=== PATIENT | female | born 1945 | race Caucasian/White ===

== ENCOUNTER 2025-01-30 10:07 | Emergency (ER) | payer MEDICARE, OTHER, SELFPAY ==
[2025-01-30] VITALS (7 sets, daily range): BP systolic 151–189; BP diastolic 77–93; PULSE 77–85; RESP 18–24; TEMP 36.4; O2SAT 95–100
--- NOTE | 2025-01-30 10:08 | DI.CT.S_ITS ---
PROCEDURE: CT STROKE INDICATIONS: Altered mental status TECHNIQUE: Noncontrast 4.5 mm thick angled axial sections acquired from the foramen magnum to the vertex, with coronal reformats. For radiation dose reduction, the following was used: automated exposure control, adjustment of mA and/or kV according to patient size. COMPARISON: None. FINDINGS: Image quality: Diagnostic. CSF spaces: Basal cisterns are patent. Large extra-axial hematoma along left frontal parietal convexity measures up to 1.8 cm in thickness. There is also suggestion of a small extra-axial bleed along right frontal convexity. Brain: Large hematoma within left posterior parietal occipital lobe with extensive surrounding vasogenic edema and significant mass effect on the adjacent left lateral ventricle and left cerebral hemisphere. There is up to 2.2 cm midline shift to the right. There is cerebral volume loss, with resultant ventricular and sulcal prominence. There are periventricular and deep white matter chronic small vessel ischemic changes. There is intracranial internal carotid artery atherosclerosis. Skull and face: Calvarium and visualized facial bones appear intact, without suspicious lesions. Sinuses: Visualized sinuses and mastoids are clear. IMPRESSION: 1. Acute intraparenchymal hemorrhage involving left posterior parietal septal lobe with extensive surrounding vasogenic edema, mass effect on left cerebral hemisphere and left lateral ventricle with up to 2.2 cm midline shift to the right. 2. Large left extra-axial hematoma likely subarachnoid measures up to 1.8 cm in thickness. Small right frontal subarachnoid hemorrhage. Findings were reported to ordering physician in the ER at the time of dictation. This study fulfills neurological imaging criteria for inclusion or exclusion of acute stroke therapies based on available published neurological guidelines. Dictated by: Mata Sanders M.D. on 01/30/2025 at 10:28 Approved by: Mata Sanders M.D. on 01/30/2025 at 10:35
--- NOTE | 2025-01-30 10:18 | ED.AMS ---
HPI - Altered Mental Status General Chief Complaint: Neuro Symptoms/Deficit Stated Complaint: Code stroke,intubated,blown pupil,LKW 0900 Time Seen by Provider: 01/30/25 10:07 History of Present Illness HPI narrative: Patient brought in by ambulance from local [place]. Patient became unresponsive on the [place]. Blood sugar 137. Medical provider at scene saw that patient was unresponsive. No CPR was done. Sudden note is with patient. He was bringing her back to [place], her home. They were in [place] yesterday for Nephrology visits. She does have history of aortic aneurysm and kidney disease. He is uncertain why she has kidney failure. Is not on dialysis. Uncertain if she is on blood thinners. He states it she is on experimental program for her aortic aneurysm. She was doing well yesterday. Went to bed with no complaints however the awoke this morning with a headache. She was confused on their way to the [place]. Patient intubated with 7.0 ET tube. Done by EMS. 24 cm at the gums. Patient has fixed dilated left pupil. No response to pain stimuli to the fingers bilaterally or feet bilaterally. No response to sternal rub. Code stroke was activated Related Data Allergies Allergy/AdvReac Type Severity Reaction Status Date / Time No Known Drug Allergies Allergy Verified 01/30/25 10:16 Review of Systems Review of Systems Narrative: GENERAL: Negative chills, fatigue, malaise, fever, sweats. HEENT: Negative sinus pain, ear pain, sore throat RESPIRATORY: Negative dyspnea, cough CARDIOVASCULAR: Negative chest pain, palpitations GASTROINTESTINAL: Negative vomiting, nausea, abdominal pain : Negative dysuria, frequency, hematuria MUSCULOSKELETAL: Negative muscle or bony pain SKIN: Negative rash, skin lesions NEUROLOGIC: Negative weakness, numbness, positive headache, positive confusion History from son ROS Unobtainable: All systems reviewed & are unremarkable except as noted in HPI and below Exam Narrative Exam Narrative: GENERAL: Patient intubated before the hospital arrival HEAD: Normocephalic. EYES: Left pupil dilated compared to the right ENT: Mucous membranes moist. NECK: Trachea midline. CARDIOVASCULAR: Regular rate and rhythm RESPIRATORY: Clear to auscultation. Breath sounds equal bilaterally. No wheezes, rales, or rhonchi. GASTROINTESTINAL: Abdomen soft, non-tender EXTREMITIES: No gross deformities. BACK: No flank tenderness. NEURO: Patient is intubated. No pain response to stimuli to the fingers or toes or sternal rub. SKIN: Warm and dry Initial Vital Signs Initial Vital Signs: Vital Signs Temperature 97.6 F 01/30/25 10:16 Pulse Rate 85 01/30/25 10:16 Respiratory Rate 18 01/30/25 10:16 Blood Pressure 163/81 H 01/30/25 10:16 Pulse Oximetry 96 01/30/25 10:16 Oxygen Delivery Method Mechanical Ventilation 01/30/25 10:16 Course Orders Ordered: ED Orders 01/30/25 10:27 Ventilator Order Discontinued Medications Diazepam (Diazepam 10 Mg/2 Ml Syringe) 2 mg IV NOW ONE Stop: 01/30/25 13:21 Last Admin: 01/30/25 13:37 Dose: 2 mg Documented By: GENTRY Diazepam (Diazepam 10 Mg/2 Ml Syringe) 2 mg IV NOW ONE Stop: 01/30/25 13:59 Last Admin: 01/30/25 14:01 Dose: 2 mg Documented By: GENTRY Morphine Sulfate (Morphine 2 Mg/Ml Inj) 2 mg IV NOW ONE Stop: 01/30/25 13:21 Last Admin: 01/30/25 13:37 Dose: 2 mg Documented By: GENTRY Morphine Sulfate (Morphine 2 Mg/Ml Inj) 2 mg IV NOW ONE Stop: 01/30/25 13:56 Last Admin: 01/30/25 13:57 Dose: 2 mg Documented By: GENTRY Morphine Sulfate (Morphine 4 Mg/Ml Inj) 4 mg IV NOW ONE Stop: 01/30/25 14:05 Propofol (Propofol 200 Mg/20 Ml Vial) 40 mg IV NOW ONE Stop: 01/30/25 10:32 Last Admin: 01/30/25 10:33 Dose: 40 mg Documented By: REBEKAH Vital Signs Vital signs: Vital Signs - 8 hr 01/30/25 11:30 01/30/25 11:30 01/30/25 12:00 Pulse Rate 80 77 Respiratory Rate 24 24 Blood Pressure 181/93 H Pulse Oximetry 97 97 01/30/25 12:00 Pulse Rate Respiratory Rate Blood Pressure 189/91 H Pulse Oximetry MDM - Altered Mental Status Lab Data Labs: Lab Results 01/30/25 Range/Units 10:17 POC Whole Bld Glucose 136 H (70-99) mg/dL Imaging Data CT scan - head: Radiologist's Impression: [address] [address] [address] Scan Report Signed Patient: Nicole Malcolm MR#: [id number] : 1945 Acct:[id number] Age/Sex: 79 / F Date of Service: 01/30/25 Loc: ED Accession Number: [id number] Procedure: CT Stroke Ordering Provider: Rohan Castillo MD PROCEDURE: CT STROKE INDICATIONS: Altered mental status TECHNIQUE: Noncontrast 4.5 mm thick angled axial sections acquired from the foramen magnum to the vertex, with coronal reformats. For radiation dose reduction, the following was used: automated exposure control, adjustment of mA and/or kV according to patient size. COMPARISON: None. FINDINGS: Image quality: Diagnostic. CSF spaces: Basal cisterns are patent. Large extra-axial hematoma along left frontal parietal convexity measures up to 1.8 cm in thickness. There is also suggestion of a small extra-axial bleed along right frontal convexity. Brain: Large hematoma within left posterior parietal occipital lobe with extensive surrounding vasogenic edema and significant mass effect on the adjacent left lateral ventricle and left cerebral hemisphere. There is up to 2.2 cm midline shift to the right. There is cerebral volume loss, with resultant ventricular and sulcal prominence. There are periventricular and deep white matter chronic small vessel ischemic changes. There is intracranial internal carotid artery atherosclerosis. Skull and face: Calvarium and visualized facial bones appear intact, without suspicious lesions. Sinuses: Visualized sinuses and mastoids are clear. IMPRESSION: 1. Acute intraparenchymal hemorrhage involving left posterior parietal septal lobe with extensive surrounding vasogenic edema, mass effect on left cerebral hemisphere and left lateral ventricle with up to 2.2 cm midline shift to the right. 2. Large left extra-axial hematoma likely subarachnoid measures up to 1.8 cm in thickness. Small right frontal subarachnoid hemorrhage. Findings were reported to ordering physician in the ER at the time of dictation. This study fulfills neurological imaging criteria for inclusion or exclusion of acute stroke therapies based on available published neurological guidelines. Dictated by: Mata Sanders M.D. on 01/30/2025 at 10:28 Approved by: Mata Sanders M.D. on 01/30/2025 at 10:35 [facility] Narrative Medical decision making narrative: Patient brought in by ambulance from local [place]. Patient became unresponsive on the [place]. Blood sugar 137. Medical provider at scene saw that patient was unresponsive. No CPR was done. Sudden note is with patient. He was bringing her back to [place], her home. They were in [place] yesterday for Nephrology visits. She does have history of aortic aneurysm and kidney disease. He is uncertain why she has kidney failure. Is not on dialysis. Uncertain if she is on blood thinners. He states it she is on experimental program for her aortic aneurysm. She was doing well yesterday. Went to bed with no complaints however the awoke this morning with a headache. She was confused on their way to the [place]. Patient intubated with 7.0 ET tube. Done by EMS. 24 cm at the gums. Patient has fixed dilated left pupil. No response to pain stimuli to the fingers bilaterally or feet bilaterally. No response to sternal rub. MDM After history and exam, Differential considered: Includes but not limited to Medical records reviewed: No recent visit for this complaint Lab Test results independently reviewed as above. Pertinent findings: Patient DNR DNI comfort measures labs were canceled Imaging studies independently reviewed: CT head left parieto-occipital bleed. Midline shift 2 cm Consultations: Tele stroke [facility] was started. I did speak with Dr. Maikel Melissa, with [facility], informed him patient has . Patient does not need to be transferred for post/autopsy. I spoke with family and they do not want to transfer patient there if not needed. Re-evaluations: 10:25 a.m.. While on the phone with [facility], son has decided to make patient comfort measures only. Patient was already a DNR DNI, he states patient would not want to be intubated but this was done pre-hospital. He has spoken with the patient's sister, his aunt, she is on her way from [place] and he would like to keep her comfortable until she gets here and then we will extubate. Comfort measures only. We will not transfer or get consults. However may need admission for comfort measures Time of 2:14 p.m.. Order for extubation done. Morphine and Valium used for comfort measures. Sister and son are in the room. Ultrasound use no cardiac activity. No heart sounds on auscultation. No spontaneous breathing. No response to painful stimuli. Pupils are fixed and dilated. Discussion: Appropriate for extubation and possible admission if requiring for comfort measures. Patient has been comfortable during course of stay. Diagnosis: Intracranial bleed Discharge Plan Departure Patient Disposition: Clinical Impression: Intracranial bleed Date/Time: 01/30/25 14:14
--- NOTE | 2025-01-30 10:48 | PC.NURSE ---
Intubated. Unresponsive. Family at bedside.
--- NOTE | 2025-01-30 11:39 | PC.NURSE ---
introduced self to son Benjamín and offered comfort.
[2025-01-30] MEDS: MORPHINE 2 MG/ML INJ IV ×2 (13:37→13:57)
--- NOTE | 2025-01-30 13:43 | PC.NURSE ---
the pt family at bedside with RT and the nurse. also arrived at 1348. orders for extubation in.
--- NOTE | 2025-01-30 13:52 | PC.NURSE ---
pt premedicated and extubated
--- NOTE | 2025-01-30 14:09 | PC.NURSE ---
no more agonal breathes observed from pt by 1402. MD notifed, responded to bedside at 1405 to perform assessment. TOD noted by provider 1414.
--- NOTE | 2025-01-30 15:51 | PC.NURSE ---
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
== END 2025-01-30 16:20 | disposition expired ==
PROVIDERS: Emergency Provider Emergency Medicine
DX: I62.9 Nontraumatic intracranial hemorrhage, unspecified (principal); Z86.79 Personal history of other diseases of the circulatory system
CPT/HCPCS: 36415; 70450; 82962; 94799; 96374; 96375; 99284; 99285; J2270; J2704; J3360